=== PATIENT | female | born 1975 | race Two or more races ===

== ENCOUNTER 2022-02-21 11:10 | Emergency (ER) | payer OTHER ==
[~2022-02-21] VITALS: Ht 167.6 cm; Wt 109.1 kg
[2022-02-21 11:39] VITALS: BP 136/105
[2022-02-21] MEDS ORDERED: TETANUS-DIPTH-ACEL PERTUSSIS 0.5ML SYR Tdap IM ONE (12:15)
[2022-02-21] MEDS ORDERED: ACETAMINOPHEN 325 MG TAB PO ONE (12:15)
[2022-02-21] MEDS ORDERED: IBUPROFEN 400 MG TAB PO ONE (12:15)
[2022-02-21] MEDS ORDERED: LIDOCAINE 1% HCL (LOCAL ANESTH.) INJ 20ML MDV IJ ONE (12:15)
[2022-02-21] MEDS ORDERED: CEPHALEXIN 250 MG CAP PO ONE (12:30)
== END 2022-02-21 14:30 | disposition home or self-care (01) ==
LOC: ER 11:10
DX: S61.210A Laceration without foreign body of right index finger without damage to nail, initial encounter (principal); Z88.2 Allergy status to sulfonamides; W25.XXXA Contact with sharp glass, initial encounter; Y93.89 Activity, other specified; Y92.89 Other specified places as the place of occurrence of the external cause; Y99.8 Other external cause status
CPT/HCPCS: 12002; 73130; 99283; J2001